=== PATIENT | male | born 1965 | race American Indian/Alaskan Native ===

== ENCOUNTER 2017-06-11 10:51 | Inpatient (IN) | payer MEDICARE, MEDICAID, OTHER ==
--- NOTE | 2017-06-11 11:21 | RAD ---
HISTORY: Detox/Psy COMPARISON: No prior. TECHNIQUE: Chest PA and lateral FINDINGS: LUNGS: No infiltrate. Probable calcified granuloma at right lung base. PLEURA: No significant pleural effusion identified. No pneumothorax apparent. CARDIOVASCULAR: Normal. OSSEOUS STRUCTURES: No significant abnormalities. VISUALIZED UPPER ABDOMEN: Normal. OTHER FINDINGS: None. IMPRESSION: No active disease.
[2017-06-11 11:43] LABS: BASO # 0.1 K/uL (0.0-0.2); BASO % 1.3 % (0.0-2.0); EOS # 0.1 K/uL (0.0-0.7); EOS % 2.5 % (0.0-4.0); HEMOGLOBIN 14.6 g/dL (12.0-18.0); LYMPH # 1.2 K/uL (1.0-4.3); LYMPH % 24.2 % (20.0-40.0); MEAN CELL VOLUME 94.9 fL (80.0-94.0); MEAN CORPUSCULAR HEMOGLOBIN 33.1 pg (27.0-31.0); MEAN CORPUSCULAR HGB CONC 34.8 g/dL (33.0-37.0); MONO # 0.3 K/uL (0.0-0.8); MONO % 5.3 % (0.0-10.0); NEUT # 3.3 K/uL (1.8-7.0); NEUT % 66.7 % (50.0-75.0); RBC 4.41 Mil/uL (4.40-5.90); RED CELL DISTRIBUTION WIDTH 14.7 % (11.5-14.5); WHITE BLOOD COUNT 4.9 K/uL (4.8-10.8)
[2017-06-11 11:56] LABS: SQUAMOUS EPITHIAL < 1 /hpf (0-5); URINE BILIRUBIN NEGATIVE (NEGATIVE); URINE BLOOD NEGATIVE (NEGATIVE); URINE CLARITY Clear (Clear); URINE COLOR Yellow (YELLOW); URINE GLUCOSE (UA) NORMAL (Normal); URINE LEUKOCYTE ESTERASE NEG Leu/uL (Negative); URINE PROTEIN NEGATIVE (NEGATIVE); URINE UROBILINOGEN NORMAL mg/dL (0.2-1.0)
[2017-06-11 11:57] LABS: ALB/GLOB RATIO 1.3 (1.0-2.1); ALBUMIN 4.2 g/dL (3.5-5.0); ALT/SGPT 26 U/L (21-72); AST/SGOT 51 U/L (17-59); BLOOD UREA NITROGEN 18 mg/dL (9-20); CALCIUM 8.8 mg/dl (8.6-10.4); GFR AFRICAN-AMERICAN > 60; GFR NON-AFRICAN AMERICAN > 60
--- NOTE | 2017-06-11 12:03 | C.PDOC ---
History Of Present Illness 51 year old male w/PMHx of poly-substance abuse presents to the ED requesting heroin detox. Patient states his last use was yesterday. AT present time, pt denies suicidal/homicidal ideation, pt denies any active physical complaints. Ambulate to Ed for evaluation, not in any apparent distress. Appears appropriate. Time Seen by Provider: 06/11/17 10:56 Chief Complaint (Nursing): Substance Abuse History Per: Patient History/Exam Limitations: no limitations Onset/Duration Of Symptoms: Hrs Current Symptoms Are (Timing): Still Present Suicide/Self Injury Attempted (Context): None Modifying Factor(s): Narcotics (heroin ) Associated Symptoms: denies: Suicidal Thoughts, Suicidal Plan Involuntary Hold By: None Recent travel outside of the [place]: No Additional History Per: Patient Past Medical History Reviewed: Historical Data, Nursing Documentation, Vital Signs Vital Signs: Last Vital Signs Temp 98.4 F 06/11/17 10:56 Pulse 50 L 06/11/17 13:53 Resp 16 06/11/17 13:53 BP 100/54 L 06/11/17 13:53 Pulse Ox 98 06/11/17 13:53 - Medical History PMH: Asthma, HIV, HTN Denies: Diabetes, Hepatitis, Seizures, Sexually Transmitted Disease Surgical History: No Surg Hx Family History: States: Unknown Family Hx - Social History Hx Alcohol Use: No Hx Substance Use: Yes - Immunization History Hx Tetanus Toxoid Vaccination: No Hx Influenza Vaccination: No Hx Pneumococcal Vaccination: No Review Of Systems Except As Marked, All Systems Reviewed And Found Negative. Constitutional: Negative for: Fever, Chills Eyes: Negative for: Vision Change ENT: Negative for: Throat Pain, Throat Swelling Cardiovascular: Negative for: Chest Pain, Palpitations, Orthopnea, Light Headedness Respiratory: Negative for: Cough, Shortness of Breath, Wheezing Gastrointestinal: Negative for: Nausea, Vomiting, Abdominal Pain, Diarrhea Genitourinary: Negative for: Dysuria, Incontinence Musculoskeletal: Negative for: Neck Pain, Back Pain Skin: Negative for: Rash, Bruising Neurological: Negative for: Weakness, Numbness, Altered Mental Status, Headache , Dizziness Psych: Positive for: Other (heroin detox ). Negative for: Suicidal ideation Physical Exam - Physical Exam Appears: Non-toxic, No Acute Distress Skin: Normal Color, Warm, Dry, No Rash, No Ecchymosis Head: Atraumatic, Normacephalic Eye(s): bilateral: PERRL Nose: No Flaring, No Discharge Oral Mucosa: Moist, No Drooling Throat: No Erythema Neck: Trachea Midline, Supple Chest: Symmetrical, No Deformity, No Tenderness Cardiovascular: Rhythm Regular, No Murmur Respiratory: No Rales, No Rhonchi, No Wheezing Gastrointestinal/Abdominal: Soft, No Tenderness, No Distention, No Guarding Back: No Vertebral Tenderness Extremity: Normal ROM, No Tenderness, No Pedal Edema, Capillary Refill (less than 2 seconds ) Neurological/Psych: Oriented x3, Normal Speech, Normal Cognition, Normal Motor, Normal Sensation, Normal Reflexes ED Course And Treatment - Laboratory Results Result Diagrams: 06/11/17 11:39 06/11/17 11:39 Lab Interpretation: Normal ECG: Interpreted By Me, Viewed By Me () ECG Interpretation: Normal Interpretation Of ECG: Sinus kacey@47/min, LVH, no acute ST-T changes. O2 Sat by Pulse Oximetry: 98 (on RA) Pulse Ox Interpretation: Normal - Radiology CXR: Interpreted by Me, Read By Radiologist CXR Interpretation: Yes: No Acute Disease - Other Rad CXR X-Ray: Interpreted by Me, Viewed By Me, Read By Radiologist Interpretation: HISTORY: Detox/Psy. COMPARISON: No prior. TECHNIQUE: Chest PA and lateral. FINDINGS: LUNGS: No infiltrate. Probable calcified granuloma at right lung base. PLEURA: No significant pleural effusion identified. No pneumothorax apparent. CARDIOVASCULAR: Normal. OSSEOUS STRUCTURES: No significant abnormalities. VISUALIZED UPPER ABDOMEN: Normal. OTHER FINDINGS: None. IMPRESSION: No active disease. Progress Note: Bloodwork, UA, CXR, and EKG ordered and reviewed. At 12:02, blood work, UA, EKG, CXR review and appears normal. Patient is medically cleared for PES evaluation now. After pt was evaluated by scrap metal processing worker Samara, case discussed with [id number] and admission arranged to detox floor. Disposition - Disposition Disposition: HOME/ ROUTINE Disposition Time: 13:20 Condition: STABLE - Clinical Impression Clinical Impression: Opioid dependence - PA / COMBINE DRIVER / Resident Statement MD/DO has reviewed & agrees with the documentation as recorded. - Scribe Statement The provider has reviewed the documentation as recorded by the Scribe (Rere Caban) All medical record entries made by the Scribe were at my direction and personally dictated by me. I have reviewed the chart and agree that the record accurately reflects my personal performance of the history, physical exam, medical decision making, and the department course for this patient. I have also personally directed, reviewed, and agree with the discharge instructions and disposition.
[2017-06-11 12:14] LABS: BARBITURATES, UR NEGATIVE (NEGATIVE); BENZODIAZEPINES, UR NEGATIVE (NEGATIVE); PHENCYCLIDINE, UR NEGATIVE (NEGATIVE)
[2017-06-11 12:37] LABS: OPIATES, UR POSITIVE (NEGATIVE)
[2017-06-11] MEDS ORDERED: Aluminum Hydroxide/Magnesium Hydroxide Susp (30 mL) PO PRN (13:48)
--- NOTE | 2017-06-11 13:52 | PCM.PSYCH ---
Initial Psychiatric Evaluation - Initial Psychiatric Evaluation Type of Admission: Voluntary Legal Status: Capacity Chief Complaint (in patient's own words): "Withdrawing" History of Present Illness and Precipitating Events: The pt is seen, chart reviewed, case discussed This is a 51 y/o AAM, with 10 children but lives with a new only. On disability due to back and knee injuries. He uses 40 bags of heroin intranasally, last use was yesterday. He started 10 years ago. No other drug or opioid use. Denies alcohol but smokes 1 ppd cigarettes. He was in detox and rehab 2x each and used suboxone. He says he couldn't stop on his own and has poor support system. No psych sxs except ofr wdw-related. Past psych hx: Denies Family psych hx: Denies Medical hx: HIV, DM? and asthma Current Medications: Active Medications Generic Name Dose Route Start Last Admin Trade Name Freq PRN Reason Stop Dose Admin Al Hydrox/Mg Hydrox/Simethicone 30 ml 06/11/17 13:48 Maalox 30 Ml PO TID PRN Indigestion / Heartburn Albuterol 1 puff 06/11/17 14:00 Ventolin Hfa 90 Mcg/Actuation (8 G) IH TID JOSUÉ Aspirin 81 mg 06/11/17 13:45 Aspirin Chewable PO DAILY JOSU[facility] Clonidine HCl 0.1 mg 06/11/17 13:48 Catapres PO Q8 PRN COWS Score More or Equal to 5 Hydroxyzine HCl 50 mg 06/11/17 13:49 Atarax PO Q6H PRN Anxiety Ibuprofen 600 mg 06/11/17 13:50 Motrin Tab PO Q6H PRN Pain, moderate (4-7) Loperamide HCl 2 mg 06/11/17 13:48 Imodium PO Q8 PRN Diarrhea Metoprolol Succinate 25 mg 06/12/17 10:00 Toprol Xl PO DAILY JOSUÉ Multivitamins 1 tab 06/12/17 10:00 Hexavitamin PO DAILY JOS[facility] Ondansetron HCl 4 mg 06/11/17 13:48 Zofran Tab PO Q8 PRN Nausea/Vomiting Quetiapine Fumarate 50 mg 06/11/17 22:00 Seroquel PO HS JOSU[facility] Rosuvastatin Calcium 10 mg 06/11/17 22:00 Crestor PO HS JOSUÉ Ticagrelor 90 mg 06/12/17 10:00 Brilinta PO DAILY J[facility] Trazodone HCl 50 mg 06/11/17 13:50 Desyrel PO HS PRN Insomnia Past Psychiatric History - Past Psychiatric History Previous Treatment History: None Pertinent Medical Hx (Current Medical&Sleep Prob, Allergies): Allergies Allergy/AdvReac Type Severity Reaction Status Date / Time tomato Allergy Verified 06/11/17 11:20 Albuterol HFA [Ventolin HFA 90 mcg/actuation (8 g)] 1 puff IH TID 06/11/17 Aspirin [Aspirin Chewable] 81 mg PO DAILY 06/11/17 Emtricitabine/Tenofov Alafenam [Descovy 200-25 mg Tablet] 1 each PO DAILY Metoprolol Succinate 25 mg PO DAILY 06/11/17 Multivitamin [Multi-Vitamin Daily] 1 each PO DAILY 06/11/17 QUEtiapine [SEROquel] 50 mg PO HS 06/11/17 Raltegravir Potassium [Isentress Hd] 600 mg PO DAILY 06/11/17 Ramipril [Altace] 2.5 mg PO DAILY 06/11/17 Rosuvastatin Calcium [Crestor] 10 mg PO DAILY 06/11/17 Ticagrelor [Brilinta] 90 mg PO DAILY 06/11/17 Review of Systems - Neurological Neurological: UNREMARKABLE - Psychiatric Psychiatric: Abnormal Sleep Pattern, Anxiety, Difficulty Concentrating, Irritability. absent: Homicidal Ideation, Suicidal Ideation Mental Status Examination - Personal Presentation Personal Presentation: Looks stated age - Affect Affect: Constricted - Motor Activity Motor Activity: Calm - Reliability in Providing Information Reliability in Providing Information: Good - Speech Speech: Organized - Mood Mood: Anxious - Formal Thought Process Formal Thought Process: No Impairment - Cognitive Functions Orientation: Person, Place, Situation, Time Sensorium: Alert Attention/Concentration: Attentive Estimate of Intelligence: Average Judgement: Intact, as evidence by: Insight regarding need for hospitalization Memory: Recent intact, as evidence by: Ability to recall events of the day, Remote intact, as evidenced by: Abilit to recall sig. life events - Risk Risk: Withdrawal, Diminished functioning - Strength & Assets Inventory Strength & Assets Inventory: Cooperative - Limitations Limitations: Other DSM 5 DX - DSM 5 DSM 5 Diagnosis: Opioid withdrawal Opioid use d/o - severe Tobacco use d/ - severe - Recommended/Plan of Treatment Treatment Recommendations and Plan of Treatment: Subutex detox per his request As needed medications Gabapentin for augmentation if needed All risks, benefits and alternatives of medications, including no medications, discussed and the patient understood and agreed. Attend groups and activities Supportive therapy and psychoeducation SC for abstinence CBT for relapse prevention Encourage MAT Refer to rehab or IOP Attend self-help groups as well SC for smoking cessation and patch if needed 34 min Projected ELOS: 4-5 days Prognosis: Good with detox and rehab/MAT - Smoking Cessation Smoking Cessation Initiated: Yes
--- NOTE | 2017-06-11 14:44 | PCM.BM ---
<Himanshu Hale - Last Filed: 06/11/17 14:42> Treatment Plan Problems - Problems identified on initial assessmt potential for opiate withdrawal Date Initiated: 06/11/17 Time Initiated: 14:30 Assessment reference: NA Status: Active Treatment assets and liabiliti Patient Assests: ADL independent, cognitively intact Patient Liabilities: poor support system, substance abuse, medical problems - Milieu Protocol Maintain good personal hygiene: daily Encourage regular showers, daily Remind patient to perform daily oral care, daily Assist patient to perform ADL's Conduct patient checks and document Observation sheet: Q15 minutes Maintain personal safety: every shift Educate patient to report safety concerns to staff, every shift Monitor environment for contraband/sharps Medication safety: Monitor for expected outcome, potential side effects: daily, Assess barriers to learning: every shift, Assess readiness for medication education: every shift <Alka Sanches - Last Filed: 06/12/17 16:29> - Diagnosis (1) Opioid dependence Status: Acute Interventions: 06/12/17 16:29 * Assess 7x/week regarding severity of withdrawal * Educate regarding risks, benefits, side effects and alternatives of medications * Use Motivational Interviewing for abstinence * Use CBT for relapse prevention * Medication management for withdrawal symptoms * Encourage medication assisted treatment *
[2017-06-11] MEDS ORDERED: Buprenorphine Hydrochloride 2 mg SL ONE ×2 (15:00→16:00)
[2017-06-11] MEDS ORDERED: Albuterol HFA 90 mcg/actuation (8 g) IH PRN (16:00)
[2017-06-11] MEDS: RALTEGRAVIR 600 MG PO SCH (16:21)
[2017-06-11] MEDS: DESCOVY PO SCH (16:21)
[2017-06-11] MEDS ORDERED: Oxymetazoline 0.05% Nasal Spray (30 ml) NS PRN (17:46)
[2017-06-11] MEDS: Oxymetazoline 0.05% Nasal Spray (30 ml) NS PRN (18:27)
[2017-06-12] MEDS ORDERED: Metoprolol Succinate 25 mg XL Tab PO SCH (10:00)
[2017-06-12] MEDS: DESCOVY PO SCH ×2 (11:06→11:16)
[2017-06-12] MEDS: RALTEGRAVIR 600 MG PO SCH ×2 (11:07→11:16)
[2017-06-12] MEDS: Multiple Vitamins Tab PO SCH (11:15)
[2017-06-12] MEDS ORDERED: Buprenorphine Hydrochloride 2 mg SL SCH ×2 (14:00→14:30)
--- NOTE | 2017-06-12 14:02 | PCM.PYCHPN ---
Psychiatric Progress Note - Psychiatric Progress Note Patient seen today, length of contact: 15 minutes Patient Chief Complaint: I'm not feeling better. Problems Identified/Issues Discussed: Patient seen, chart reviewed, case discussed with the staff. Issues related to illness and treatment were discussed with the patient and staff. Reported compliant with treatment with no adverse affects. Until this morning patient and vomiting, 3 times. Patient was given Zofran IM, one dose. Vomiting stopped. Patient started complaining about abdominal pain. His heart rate was low. EKG was done with preliminary report of bradycardia and first degree AV block. Patient denied any chest pain, shortness of breath, faintness or sweating. Medical consult was called. Patient has coronary artery disease and has a stent placement in coronary arteries. Patient refuses to take all of his medications except Subutex. Does not want to take any other medications even after education provided. At the time of evaluation, patient was awake alert oriented 3, had no delusions , no auditory or visual hallucinations, no suicidal ideations or homicidal ideations. Medical Problems: HIV Diabetes mellitus Coronary artery disease Asthma Hypertension Diagnostic Results: Reviewed DSM 5 Symptoms Update: Some improvement with treatment Medication Change: No Medical Record Reviewed: Yes Consults ordered or reviewed: Medical consult was called Mental Status Examination - Cognitive Function Orientation: Person, Place, Situation, Time Memory: Intact Attention: WNL Concentration: WNL Association: [facility] Fund of Knowledge: [facility] Decription of patient's judgement and insights: Fair - Mood Mood: Anxious - Affect Affect: Other (Appropriate) - Speech Speech: Appropriate - Formal Thought Process Formal Thought Process: No Impairment Psychotic Thoughts and Behaviors: None - Suicidal Ideation Suicidal Ideation: No - Homicidal Ideation Homicidal Ideation: No Goal/Treatment Plan - Goal/Treatment Plan Need for Continued Stay: Remain at risks for inpatient hospitalization, Discharge may exacerbated symptoms, Severe functional impairment Progress Toward Problem(s) and Goals/Treatment Plan: Patient education Supportive therapy CBT reported relapse prevention [place] for abstinence Hold metoprolol for now Continue rest of the treatment as before Estimated Date of D/C: 06/15/17 - Smoking Cessation Smoking Cessation Initiated: No
[2017-06-12 15:12] LABS: BASO % 0.6 % (0.0-2.0); EOS % 0.1 % (0.0-4.0); HEMOGLOBIN 16.3 g/dL (12.0-18.0); LYMPH # 0.7 K/uL (1.0-4.3); LYMPH % 10.3 % (20.0-40.0); MEAN CELL VOLUME 94.7 fL (80.0-94.0); MEAN CORPUSCULAR HEMOGLOBIN 32.6 pg (27.0-31.0); MEAN CORPUSCULAR HGB CONC 34.5 g/dL (33.0-37.0); MEAN PLATELET VOLUME 8.6 fL (7.2-11.7); MONO # 0.2 K/uL (0.0-0.8); MONO % 2.3 % (0.0-10.0); NEUT # 6.1 K/uL (1.8-7.0); NEUT % 86.7 % (50.0-75.0); RED CELL DISTRIBUTION WIDTH 14.6 % (11.5-14.5)
[2017-06-12 15:41] LABS: ALB/GLOB RATIO 1.2 (1.0-2.1); ALBUMIN 4.7 g/dL (3.5-5.0); ALT/SGPT 34 U/L (21-72); AST/SGOT 38 U/L (17-59); BLOOD UREA NITROGEN 16 mg/dL (9-20); CALCIUM 9.8 mg/dl (8.6-10.4); GFR AFRICAN-AMERICAN > 60; GFR NON-AFRICAN AMERICAN > 60
--- NOTE | 2017-06-12 16:20 | CP.PCM.CON ---
History of Present Illness - History of Present Illness History of Present Illness: Consulted for bardycardia Denies chest pain, dyspnea and palpitations Stable BP HX of stent a few months ago Stopped affending agents which can cause Bradycardia including Metoprolol and Brilinta Plavix started Lytes normal Trop x 1 normal TSH low Check ECHO Oxygen therapy DVT/GI propylaxis IV hydration Will follow Reason for consult: sinus kacey HPI: Patient is a 51 yo man with hx of CAD s/p PCI 3 months ago; HIV; HTN; heroin abuse; who was admitted for heroin detox. He was noted on tele to have asymptomatic sinus kacey to 35 bpm with underlying narrow QRS. ROS: as above, otherwise negative PMH: as above SH: + tobacco, + heroin, occasional ETOH FH: no premature CAD or SCA Physical Exam - Constitutional Appears: Well, In Acute Distress - Head Exam Head Exam: ATRAUMATIC - Eye Exam Eye Exam: Normal appearance - ENT Exam ENT Exam: Mucous Membranes Moist - Neck Exam Neck exam: Positive for: Normal Inspection - Respiratory Exam Respiratory Exam: Clear to Auscultation Bilateral - Cardiovascular Exam Cardiovascular Exam: REGULAR RHYTHM, +S1, +S2 - GI/Abdominal Exam GI & Abdominal Exam: Soft - Extremities Exam Extremities exam: Negative for: pedal edema - Neurological Exam Neurological exam: Oriented x3 - Psychiatric Exam Psychiatric exam: Normal Affect - Skin Skin Exam: Warm Past Patient History - Past Social History Smoking Status: Heavy Smoker > 10 Cigarettes Daily - CARDIAC Hx Hypertension: Yes - PULMONARY Hx Asthma: Yes - NEUROLOGICAL Hx Seizures: No - HEMATOLOGICAL/ONCOLOGICAL Hx Human Immunodeficiency Virus (HIV): Yes - MUSCULOSKELETAL/RHEUMATOLOGICAL Hx Falls: No - GENITOURINARY/GYNECOLOGICAL Hx Sexually Transmitted Disorders: No - PSYCHIATRIC Hx Substance Use: No - SURGICAL HISTORY Hx Coronary Stent: Yes - ANESTHESIA Hx Anesthesia: No Hx Anesthesia Reactions: No Hx Malignant Hyperthermia: No Has any member of the family had a problem w/ anesthesia?: No Meds Allergies/Adverse Reactions: Allergies Allergy/AdvReac Type Severity Reaction Status Date / Time tomato Allergy Verified 06/11/17 11:20 - Medications Medications: Current Medications Al Hydrox/Mg Hydrox/Simethicone (Maalox 30 Ml) 30 ml PO TID PRN PRN Reason: Indigestion / Heartburn Albuterol (Ventolin Hfa 90 Mcg/Actuation (8 G)) 1 puff IH RQ4 PRN PRN Reason: Shortness of Breath Aspirin (Aspirin Chewable) 81 mg PO DAILY [facility] Last Admin: 06/12/17 11:14 Dose: Not Given Buprenorphine HCl (Subutex) 6 mg SL DAILY [facility] PRN Reason: Taper Stop: 06/15/17 14:29 Last Admin: 06/12/17 14:24 Dose: 6 mg Clonidine HCl (Catapres) 0.1 mg PO Q8 PRN PRN Reason: COWS Score More or Equal to 5 Last Admin: 06/11/17 21:33 Dose: 0.1 mg Clopidogrel Bisulfate (Plavix) 300 mg PO STAT STA Stop: 06/12/17 16:16 Clopidogrel Bisulfate (Plavix) 75 mg PO DAILY [facility] Enalapril Maleate (Vasotec) 5 mg PO DAILY [facility] Last Admin: 06/12/17 11:16 Dose: Not Given Home Med (Patient's Own Medication) 1 tab PO DAILY [facility] Last Admin: 06/12/17 11:16 Dose: Not Given Home Med (Patient's Own Medication) 2 tab PO DAILY [facility] Last Admin: 06/12/17 11:16 Dose: Not Given Hydroxyzine HCl (Atarax) 50 mg PO Q6H PRN PRN Reason: Anxiety Last Admin: 06/11/17 21:32 Dose: 50 mg Ibuprofen (Motrin Tab) 600 mg PO Q6H PRN PRN Reason: Pain, moderate (4-7) Loperamide HCl (Imodium) 2 mg PO Q8 PRN PRN Reason: Diarrhea Metoprolol Succinate (Toprol Xl) 25 mg PO DAILY [facility] Last Admin: 06/12/17 10:43 Dose: Not Given Multivitamins (Hexavitamin) 1 tab PO DAILY [facility] Last Admin: 06/12/17 11:15 Dose: Not Given Ondansetron HCl (Zofran Tab) 4 mg PO Q8 PRN PRN Reason: Nausea/Vomiting Last Admin: 06/12/17 06:24 Dose: 4 mg Oxymetazoline HCl (Afrin 0.05%) 1 ml NS Q12H PRN PRN Reason: Nasal congestion Stop: 06/14/17 17:51 Last Admin: 06/11/17 18:27 Dose: 1 spr Quetiapine Fumarate (Seroquel) 50 mg PO HS [facility] Last Admin: 06/11/17 21:33 Dose: 50 mg Rosuvastatin Calcium (Crestor) 10 mg PO HS [facility] Last Admin: 06/11/17 21:33 Dose: 10 mg Trazodone HCl (Desyrel) 50 mg PO HS PRN PRN Reason: Insomnia Results - Vital Signs Recent Vital Signs: Last Vital Signs Temp 98.4 F 06/12/17 13:16 Pulse 37 L 06/12/17 13:16 Resp 18 06/12/17 13:16 BP 160/80 H 06/12/17 13:16 Pulse Ox 97 06/12/17 13:16 - Labs Result Diagrams: 06/12/17 14:58 06/13/17 08:40 Labs: Laboratory Results - last 24 hr 06/12/17 06/12/17 06/12/17 14:58 14:58 14:58 WBC 7.0 RBC 5.00 Hgb 16.3 Hct 47.4 MCV 94.7 H MCH 32.6 H MCHC 34.5 RDW 14.6 H Plt Count 233 MPV 8.6 Neut % (Auto) 86.7 H Lymph % (Auto) 10.3 L [place] % (Auto) 2.3 Eos % (Auto) 0.1 Baso % (Auto) 0.6 Neut # (Auto) 6.1 Lymph # (Auto) 0.7 L [place] # (Auto) 0.2 Eos # (Auto) 0.0 Baso # (Auto) 0.0 Sodium 144 Potassium 4.3 Chloride 104 Carbon Dioxide 26 Anion Gap 19 BUN 16 Creatinine 1.0 Est GFR ( Amer) > 60 Est GFR (Non-Af Amer) > 60 Random Glucose 130 H Calcium 9.8 Phosphorus 3.5 Magnesium 1.9 Total Bilirubin 0.6 AST 38 ALT 34 Alkaline Phosphatase 94 Troponin I < 0.0120 Total Protein 8.6 H Albumin 4.7 Globulin 3.9 Albumin/Globulin Ratio 1.2 Free T4 TSH 3rd Generation 0.24 L 06/12/17 14:58 WBC RBC Hgb Hct MCV MCH MCHC RDW Plt Count MPV Neut % (Auto) Lymph % (Auto) [place] % (Auto) Eos % (Auto) Baso % (Auto) Neut # (Auto) Lymph # (Auto) [place] # (Auto) Eos # (Auto) Baso # (Auto) Sodium Potassium Chloride Carbon Dioxide Anion Gap BUN Creatinine Est GFR ( Amer) Est GFR (Non-Af Amer) Random Glucose Calcium Phosphorus Magnesium Total Bilirubin AST ALT Alkaline Phosphatase Troponin I Total Protein Albumin Globulin Albumin/Globulin Ratio Free T4 0.90 TSH 3rd Generation Assessment & Plan - Assessment and Plan (Free Text) Assessment: Consulted for bardycardia Denies chest pain, dyspnea and palpitations Stable BP HX of stent a few months ago Stopped affending agents which can cause Bradycardia including Metoprolol and Brilinta Plavix started Lytes normal Trop x 1 normal TSH low Check ECHO Oxygen therapy DVT/GI propylaxis IV hydration This is a cardiology patient of [facility] I will sig off They will take over cardiac care Thank you
[2017-06-12] MEDS: Sodium Chloride 0.9% 1,000 ML IV SCH (16:57)
--- NOTE | 2017-06-12 21:01 | CARD ---
APPROVED REPORT EKG Measurement Heart [id number] <Conclusion> Sinus bradycardia Minimal voltage criteria for LVH, may be normal variant Borderline ECG
--- NOTE | 2017-06-12 23:57 | CP.PCM.HP ---
History of Present Illness - History of Present Illness History of Present Illness: HPI: Patient is a 51 yo man with hx of CAD s/p PCI 3 months ago; HIV; HTN; heroin abuse; who was admitted for heroin detox. He was noted on tele to have asymptomatic sinus kacey to 35 bpm with underlying narrow QRS. He was on metoprolol 25mg BID at the time, which was held. In addition, his Brilinta was changed to Plavix to minimize chance of bradycardia. His HR has now improved to 60 bpm. Pt denies any SOB, dizziness, syncope, chest pain, orthopnea, PND or leg edema. EP is now consulted by Dr. Novak. ROS: as above, otherwise negative PMH: as above SH: + tobacco, + heroin, occasional ETOH FH: no premature CAD or SCA Denies chest pain, dyspnea and palpitations Stable BP HX of stent a few months ago Stopped affending agents which can cause Bradycardia including Metoprolol and Brilinta Plavix started Lytes normal Trop x 1 normal TSH low Check ECHO Oxygen therapy DVT/GI propylaxis IV hydration Will follow Past Patient History - Past Social History Smoking Status: Heavy Smoker > 10 Cigarettes Daily - CARDIAC Hx Hypertension: Yes - PULMONARY Hx Asthma: Yes - NEUROLOGICAL Hx Seizures: No - HEMATOLOGICAL/ONCOLOGICAL Hx Human Immunodeficiency Virus (HIV): Yes - MUSCULOSKELETAL/RHEUMATOLOGICAL Hx Falls: No - GENITOURINARY/GYNECOLOGICAL Hx Sexually Transmitted Disorders: No - PSYCHIATRIC Hx Substance Use: No - SURGICAL HISTORY Hx Coronary Stent: Yes - ANESTHESIA Hx Anesthesia: No Hx Anesthesia Reactions: No Hx Malignant Hyperthermia: No Has any member of the family had a problem w/ anesthesia?: No Meds Allergies/Adverse Reactions: Allergies Allergy/AdvReac Type Severity Reaction Status Date / Time tomato Allergy Verified 06/11/17 11:20 Results - Vital Signs Recent Vital Signs: Last Vital Signs Temp 98.1 F 06/12/17 16:05 Pulse 44 L 06/12/17 16:05 Resp 18 06/12/17 16:05 BP 165/94 H 06/12/17 16:05 Pulse Ox 96 06/12/17 16:05 - Labs Result Diagrams: 06/12/17 14:58 06/13/17 08:40 Labs: Laboratory Results - last 24 hr 06/12/17 06/12/17 06/12/17 14:58 14:58 14:58 WBC 7.0 RBC 5.00 Hgb 16.3 Hct 47.4 MCV 94.7 H MCH 32.6 H MCHC 34.5 RDW 14.6 H Plt Count 233 MPV 8.6 Neut % (Auto) 86.7 H Lymph % (Auto) 10.3 L [place] % (Auto) 2.3 Eos % (Auto) 0.1 Baso % (Auto) 0.6 Neut # (Auto) 6.1 Lymph # (Auto) 0.7 L [place] # (Auto) 0.2 Eos # (Auto) 0.0 Baso # (Auto) 0.0 Sodium 144 Potassium 4.3 Chloride 104 Carbon Dioxide 26 Anion Gap 19 BUN 16 Creatinine 1.0 Est GFR ( Amer) > 60 Est GFR (Non-Af Amer) > 60 Random Glucose 130 H Calcium 9.8 Phosphorus 3.5 Magnesium 1.9 Total Bilirubin 0.6 AST 38 ALT 34 Alkaline Phosphatase 94 Troponin I < 0.0120 Total Protein 8.6 H Albumin 4.7 Globulin 3.9 Albumin/Globulin Ratio 1.2 Free T4 TSH 3rd Generation 0.24 L 06/12/17 14:58 WBC RBC Hgb Hct MCV MCH MCHC RDW Plt Count MPV Neut % (Auto) Lymph % (Auto) [place] % (Auto) Eos % (Auto) Baso % (Auto) Neut # (Auto) Lymph # (Auto) [place] # (Auto) Eos # (Auto) Baso # (Auto) Sodium Potassium Chloride Carbon Dioxide Anion Gap BUN Creatinine Est GFR ( Amer) Est GFR (Non-Af Amer) Random Glucose Calcium Phosphorus Magnesium Total Bilirubin AST ALT Alkaline Phosphatase Troponin I Total Protein Albumin Globulin Albumin/Globulin Ratio Free T4 0.90 TSH 3rd Generation
[2017-06-13 09:12] LABS: BLOOD UREA NITROGEN 16 mg/dL (9-20); CALCIUM 9.3 mg/dl (8.6-10.4); GFR AFRICAN-AMERICAN > 60; GFR NON-AFRICAN AMERICAN > 60
[2017-06-13] MEDS: Multiple Vitamins Tab PO SCH (10:59)
[2017-06-13] MEDS: DESCOVY PO SCH (10:59)
[2017-06-13] MEDS: RALTEGRAVIR 600 MG PO SCH (10:59)
[2017-06-13] MEDS: Oxymetazoline 0.05% Nasal Spray (30 ml) NS PRN (11:16)
[2017-06-13] MEDS ORDERED: Buprenorphine Hydrochloride 2 mg SL SCH (14:00)
[2017-06-13] MEDS ORDERED: Buprenorphine Hydrochloride 2 mg SL ONE (14:15)
--- NOTE | 2017-06-13 15:12 | CP.PCM.CON ---
History of Present Illness - History of Present Illness History of Present Illness: EP CONSULT NOTE Reason for consult: sinus kacey HPI: Patient is a 51 yo man with hx of CAD s/p PCI 3 months ago; HIV; HTN; heroin abuse; who was admitted for heroin detox. He was noted on tele to have asymptomatic sinus kacey to 35 bpm with underlying narrow QRS. He was on metoprolol 25mg BID at the time, which was held. In addition, his Brilinta was changed to Plavix to minimize chance of bradycardia. His HR has now improved to 60 bpm. Pt denies any SOB, dizziness, syncope, chest pain, orthopnea, PND or leg edema. EP is now consulted by Dr. Novak. ROS: as above, otherwise negative PMH: as above SH: + tobacco, + heroin, occasional ETOH FH: no premature CAD or SCA Past Patient History - Past Social History Smoking Status: Heavy Smoker > 10 Cigarettes Daily - CARDIAC Hx Hypertension: Yes - PULMONARY Hx Asthma: Yes - NEUROLOGICAL Hx Seizures: No - HEMATOLOGICAL/ONCOLOGICAL Hx Human Immunodeficiency Virus (HIV): Yes - MUSCULOSKELETAL/RHEUMATOLOGICAL Hx Falls: No - GENITOURINARY/GYNECOLOGICAL Hx Sexually Transmitted Disorders: No - PSYCHIATRIC Hx Substance Use: No - SURGICAL HISTORY Hx Coronary Stent: Yes - ANESTHESIA Hx Anesthesia: No Hx Anesthesia Reactions: No Hx Malignant Hyperthermia: No Has any member of the family had a problem w/ anesthesia?: No Meds Allergies/Adverse Reactions: Allergies Allergy/AdvReac Type Severity Reaction Status Date / Time tomato Allergy Verified 06/11/17 11:20 - Medications Medications: Current Medications Al Hydrox/Mg Hydrox/Simethicone (Maalox 30 Ml) 30 ml PO TID PRN PRN Reason: Indigestion / Heartburn Albuterol (Ventolin Hfa 90 Mcg/Actuation (8 G)) 1 puff IH RQ4 PRN PRN Reason: Shortness of Breath Aspirin (Aspirin Chewable) 81 mg PO DAILY [facility] Last Admin: 06/13/17 10:59 Dose: 81 mg Buprenorphine HCl (Subutex) 2 mg SL ONCE ONE Stop: 06/14/17 14:16 Clonidine HCl (Catapres) 0.1 mg PO Q8 PRN PRN Reason: COWS Score More or Equal to 5 Last Admin: 06/11/17 21:33 Dose: 0.1 mg Clopidogrel Bisulfate (Plavix) 75 mg PO DAILY [facility] Last Admin: 06/13/17 10:59 Dose: 75 mg Enalapril Maleate (Vasotec) 5 mg PO DAILY [facility] Last Admin: 06/13/17 14:06 Dose: 5 mg Home Med (Patient's Own Medication) 1 tab PO DAILY [facility] Last Admin: 06/13/17 10:59 Dose: 1 tab Home Med (Patient's Own Medication) 2 tab PO DAILY [facility] Last Admin: 06/13/17 10:59 Dose: 2 tab Hydroxyzine HCl (Atarax) 50 mg PO Q6H PRN PRN Reason: Anxiety Last Admin: 06/11/17 21:32 Dose: 50 mg Sodium Chloride (Sodium Chloride 0.9%) 1,000 mls @ 70 mls/hr IV .[id number] [facility] Last Admin: 06/12/17 16:57 Dose: 70 mls/hr Ibuprofen (Motrin Tab) 600 mg PO Q6H PRN PRN Reason: Pain, moderate (4-7) Loperamide HCl (Imodium) 2 mg PO Q8 PRN PRN Reason: Diarrhea Metoprolol Succinate (Toprol Xl) 25 mg PO DAILY [facility] Last Admin: 06/12/17 10:43 Dose: Not Given Multivitamins (Hexavitamin) 1 tab PO DAILY [facility] Last Admin: 06/13/17 10:59 Dose: 1 tab Ondansetron HCl (Zofran Inj) 4 mg IVP Q8H PRN PRN Reason: Nausea/Vomiting Last Admin: 06/12/17 19:24 Dose: 4 mg Oxymetazoline HCl (Afrin 0.05%) 1 ml NS Q12H PRN PRN Reason: Nasal congestion Stop: 06/14/17 17:51 Last Admin: 06/13/17 11:16 Dose: 1 spr Pneumococcal Polyvalent Vaccine (Pneumovax 23 Vaccine) 0.5 ml IM .ONCE ONE Stop: 06/16/17 10:01 Quetiapine Fumarate (Seroquel) 50 mg PO HS [facility] Last Admin: 06/12/17 21:13 Dose: 50 mg Rosuvastatin Calcium (Crestor) 10 mg PO HS [facility] Last Admin: 06/12/17 21:13 Dose: 10 mg Trazodone HCl (Desyrel) 50 mg PO HS PRN PRN Reason: Insomnia Physical Exam - Constitutional Appears: Well, In Acute Distress - Head Exam Head Exam: ATRAUMATIC - Eye Exam Eye Exam: Normal appearance - ENT Exam ENT Exam: Mucous Membranes Moist - Neck Exam Neck exam: Positive for: Normal Inspection - Respiratory Exam Respiratory Exam: Clear to Auscultation Bilateral - Cardiovascular Exam Cardiovascular Exam: REGULAR RHYTHM, +S1, +S2 - GI/Abdominal Exam GI & Abdominal Exam: Soft - Extremities Exam Extremities exam: Negative for: pedal edema - Neurological Exam Neurological exam: Oriented x3 - Psychiatric Exam Psychiatric exam: Normal Affect - Skin Skin Exam: Warm Results - Vital Signs Recent Vital Signs: Last Vital Signs Temp 98.5 F 06/13/17 09:11 Pulse 49 L 06/13/17 09:11 Resp 20 06/13/17 09:11 BP 159/83 H 06/13/17 14:06 Pulse Ox 95 06/13/17 09:11 - Labs Result Diagrams: 06/12/17 14:58 06/13/17 08:40 Labs: Laboratory Results - last 24 hr 06/12/17 06/12/17 06/12/17 14:58 14:58 14:58 WBC 7.0 RBC 5.00 Hgb 16.3 Hct 47.4 MCV 94.7 H MCH 32.6 H MCHC 34.5 RDW 14.6 H Plt Count 233 MPV 8.6 Neut % (Auto) 86.7 H Lymph % (Auto) 10.3 L [place] % (Auto) 2.3 Eos % (Auto) 0.1 Baso % (Auto) 0.6 Neut # (Auto) 6.1 Lymph # (Auto) 0.7 L [place] # (Auto) 0.2 Eos # (Auto) 0.0 Baso # (Auto) 0.0 Sodium 144 Potassium 4.3 Chloride 104 Carbon Dioxide 26 Anion Gap 19 BUN 16 Creatinine 1.0 Est GFR ( Amer) > 60 Est GFR (Non-Af Amer) > 60 Random Glucose 130 H Calcium 9.8 Phosphorus 3.5 Magnesium 1.9 Total Bilirubin 0.6 AST 38 ALT 34 Alkaline Phosphatase 94 Troponin I < 0.0120 Total Protein 8.6 H Albumin 4.7 Globulin 3.9 Albumin/Globulin Ratio 1.2 Free T4 TSH 3rd Generation 0.24 L 06/12/17 06/13/17 14:58 08:40 WBC RBC Hgb Hct MCV MCH MCHC RDW Plt Count MPV Neut % (Auto) Lymph % (Auto) [place] % (Auto) Eos % (Auto) Baso % (Auto) Neut # (Auto) Lymph # (Auto) [place] # (Auto) Eos # (Auto) Baso # (Auto) Sodium 141 Potassium 4.1 Chloride 109 H Carbon Dioxide 20 L Anion Gap 17 BUN 16 Creatinine 1.1 Est GFR ( Amer) > 60 Est GFR (Non-Af Amer) > 60 Random Glucose 101 Calcium 9.3 Phosphorus Magnesium Total Bilirubin AST ALT Alkaline Phosphatase Troponin I 0.0150 Total Protein Albumin Globulin Albumin/Globulin Ratio Free T4 0.90 TSH 3rd Generation - Impressions Impression: sinus kacey, narrow QRS, otherwise normal tracing Assessment & Plan - Assessment and Plan (Free Text) Assessment: 1. Asymptomatic sinus bradycardia -- Underlying narrow QRS 2. CAD s/p PCI 3 months ago 3. Heroin abuse -- undergoing detox 4. HIV Plan: 1. No indication for PPM at this time since patient has asymptomatic sinus bradycardia without any heart block 2. Walk in hallway and monitor for increase in HR with exertion. If HR increases with exertion, then this would be reassuring and would be safe to start carvedilol 3.125mg daily (for his CAD) 3. However, if chronotropic incompetence is noted with hallway walk, then a PPM may be needed 4. Avoid clonidine as this may contribute to bradycardia
[2017-06-13] MEDS: Sodium Chloride 0.9% 1,000 ML IV SCH ×2 (18:02→22:25)
--- NOTE | 2017-06-13 23:45 | CP.PCM.PN ---
Subjective - Date & Time of Evaluation Date of Evaluation: 06/13/17 Time of Evaluation: 16:00 - Subjective Subjective: Pt seen & evalauted, HR has now improved to 60 bpm. Pt denies any SOB, dizziness, syncope, chest pain, orthopnea, PND or leg edema. EP is now consulted by Dr. Novak. Objective - Vital Signs/Intake and Output Vital Signs (last 24 hours): Temp Pulse Resp BP Pulse Ox 99.3 F 46 L 18 155/84 H 94 L 06/13/17 19:06 06/13/17 19:06 06/13/17 19:06 06/13/17 19:06 06/13/17 19:06 - Medications Medications: Current Medications Al Hydrox/Mg Hydrox/Simethicone (Maalox 30 Ml) 30 ml PO TID PRN PRN Reason: Indigestion / Heartburn Albuterol (Ventolin Hfa 90 Mcg/Actuation (8 G)) 1 puff IH RQ4 PRN PRN Reason: Shortness of Breath Aspirin (Aspirin Chewable) 81 mg PO DAILY [facility] Last Admin: 06/13/17 10:59 Dose: 81 mg Buprenorphine HCl (Subutex) 2 mg SL ONCE ONE Stop: 06/14/17 14:16 Carvedilol (Coreg) 3.125 mg PO DAILY [facility] Clopidogrel Bisulfate (Plavix) 75 mg PO DAILY [facility] Last Admin: 06/13/17 10:59 Dose: 75 mg Enalapril Maleate (Vasotec) 5 mg PO DAILY [facility] Last Admin: 06/13/17 14:06 Dose: 5 mg Enoxaparin Sodium (Lovenox) 40 mg SC DAILY [facility] Home Med (Patient's Own Medication) 1 tab PO DAILY [facility] Last Admin: 06/13/17 10:59 Dose: 1 tab Home Med (Patient's Own Medication) 2 tab PO DAILY [facility] Last Admin: 06/13/17 10:59 Dose: 2 tab Hydroxyzine HCl (Atarax) 50 mg PO Q6H PRN PRN Reason: Anxiety Last Admin: 06/11/17 21:32 Dose: 50 mg Sodium Chloride (Sodium Chloride 0.9%) 1,000 mls @ 70 mls/hr IV .[id number] [facility] Last Admin: 06/13/17 22:25 Dose: Not Given Ibuprofen (Motrin Tab) 600 mg PO Q6H PRN PRN Reason: Pain, moderate (4-7) Loperamide HCl (Imodium) 2 mg PO Q8 PRN PRN Reason: Diarrhea Metoprolol Succinate (Toprol Xl) 25 mg PO DAILY [facility] Last Admin: 06/12/17 10:43 Dose: Not Given Multivitamins (Hexavitamin) 1 tab PO DAILY [facility] Last Admin: 06/13/17 10:59 Dose: 1 tab Ondansetron HCl (Zofran Inj) 4 mg IVP Q8H PRN PRN Reason: Nausea/Vomiting Last Admin: 06/12/17 19:24 Dose: 4 mg Oxymetazoline HCl (Afrin 0.05%) 1 ml NS Q12H PRN PRN Reason: Nasal congestion Stop: 06/14/17 17:51 Last Admin: 06/13/17 11:16 Dose: 1 spr Pneumococcal Polyvalent Vaccine (Pneumovax 23 Vaccine) 0.5 ml IM .ONCE ONE Stop: 06/16/17 10:01 Quetiapine Fumarate (Seroquel) 50 mg PO HS [facility] Last Admin: 06/13/17 22:22 Dose: 50 mg Rosuvastatin Calcium (Crestor) 10 mg PO HS [facility] Last Admin: 06/13/17 22:22 Dose: 10 mg Trazodone HCl (Desyrel) 50 mg PO HS PRN PRN Reason: Insomnia - Labs Labs: 06/12/17 14:58 06/13/17 08:40
[2017-06-14 00:50] VITALS: RESP 20
[2017-06-14] MEDS: Sodium Chloride 0.9% 1,000 ML IV SCH ×2 (04:05→12:49)
[2017-06-14 08:15] VITALS: TEMP 98.3; O2SAT 96
[2017-06-14] MEDS ORDERED: Buprenorphine Hydrochloride 2 mg SL ONE ×2 (10:00→14:15)
[2017-06-14] MEDS ORDERED: Enoxaparin 40 mg Syringe SC SCH (10:00)
--- NOTE | 2017-06-14 10:04 | CP.PCM.PN ---
Subjective - Date & Time of Evaluation Date of Evaluation: 06/14/17 Time of Evaluation: 10:02 - Subjective Subjective: Pt did not sleep well, tired, otherwise NAD Objective - Vital Signs/Intake and Output Vital Signs (last 24 hours): Temp Pulse Resp BP Pulse Ox 98.3 F 48 L 20 154/82 H 96 06/14/17 08:04 06/14/17 08:04 06/14/17 08:04 06/14/17 08:04 06/14/17 08:04 Intake and Output: 06/14/17 06/14/17 06:59 18:59 Intake Total 560 Balance 560 - Medications Medications: Current Medications Al Hydrox/Mg Hydrox/Simethicone (Maalox 30 Ml) 30 ml PO TID PRN PRN Reason: Indigestion / Heartburn Albuterol (Ventolin Hfa 90 Mcg/Actuation (8 G)) 1 puff IH RQ4 PRN PRN Reason: Shortness of Breath Aspirin (Aspirin Chewable) 81 mg PO DAILY [facility] Last Admin: 06/13/17 10:59 Dose: 81 mg Carvedilol (Coreg) 3.125 mg PO DAILY [facility] Clopidogrel Bisulfate (Plavix) 75 mg PO DAILY [facility] Last Admin: 06/13/17 10:59 Dose: 75 mg Enalapril Maleate (Vasotec) 5 mg PO DAILY [facility] Last Admin: 06/13/17 14:06 Dose: 5 mg Enoxaparin Sodium (Lovenox) 40 mg SC DAILY [facility] Home Med (Patient's Own Medication) 1 tab PO DAILY [facility] Last Admin: 06/13/17 10:59 Dose: 1 tab Home Med (Patient's Own Medication) 2 tab PO DAILY [facility] Last Admin: 06/13/17 10:59 Dose: 2 tab Hydroxyzine HCl (Atarax) 50 mg PO Q6H PRN PRN Reason: Anxiety Last Admin: 06/11/17 21:32 Dose: 50 mg Sodium Chloride (Sodium Chloride 0.9%) 1,000 mls @ 70 mls/hr IV .[id number] [facility] Last Admin: 06/14/17 04:05 Dose: 70 mls/hr Ibuprofen (Motrin Tab) 600 mg PO Q6H PRN PRN Reason: Pain, moderate (4-7) Loperamide HCl (Imodium) 2 mg PO Q8 PRN PRN Reason: Diarrhea Multivitamins (Hexavitamin) 1 tab PO DAILY [facility] Last Admin: 06/13/17 10:59 Dose: 1 tab Ondansetron HCl (Zofran Inj) 4 mg IVP Q8H PRN PRN Reason: Nausea/Vomiting Last Admin: 06/12/17 19:24 Dose: 4 mg Oxymetazoline HCl (Afrin 0.05%) 1 ml NS Q12H PRN PRN Reason: Nasal congestion Stop: 06/14/17 17:51 Last Admin: 06/13/17 11:16 Dose: 1 spr Pneumococcal Polyvalent Vaccine (Pneumovax 23 Vaccine) 0.5 ml IM .ONCE ONE Stop: 06/16/17 10:01 Quetiapine Fumarate (Seroquel) 50 mg PO HS [facility] Last Admin: 06/13/17 22:22 Dose: 50 mg Rosuvastatin Calcium (Crestor) 10 mg PO HS [facility] Last Admin: 06/13/17 22:22 Dose: 10 mg Trazodone HCl (Desyrel) 50 mg PO HS PRN PRN Reason: Insomnia - Labs Labs: 06/12/17 14:58 06/13/17 08:40 - Constitutional Appears: Well - Head Exam Head Exam: NORMAL INSPECTION - Eye Exam Eye Exam: Normal appearance - Neck Exam Neck Exam: Full ROM - Respiratory Exam Respiratory Exam: Clear to Ausculation Bilateral, NORMAL BREATHING PATTERN - Cardiovascular Exam Cardiovascular Exam: REGULAR RHYTHM - GI/Abdominal Exam GI & Abdominal Exam: Normal Bowel Sounds - Extremities Exam Extremities Exam: Full ROM - Back Exam Back Exam: NORMAL INSPECTION - Neurological Exam Neurological Exam: Alert, Awake, Oriented x3 - Psychiatric Exam Psychiatric exam: Normal Affect - Skin Skin Exam: Normal Color Assessment and Plan - Assessment and Plan (Free Text) Assessment: 1. Heart rate currently 42 bpm, asymptomatic. 2. Will review echo after it is done.3 Asymptomatic bradycardia, cardiomyopathy : no signs of pulmonary congestion.
[2017-06-14 10:24] VITALS: BP 142/78
[2017-06-14] MEDS: DESCOVY PO SCH (10:25)
[2017-06-14] MEDS: Multiple Vitamins Tab PO SCH (10:25)
[2017-06-14] MEDS: RALTEGRAVIR 600 MG PO SCH (10:25)
--- NOTE | 2017-06-14 12:10 | PCM.PYCHPN ---
Psychiatric Progress Note - Psychiatric Progress Note Patient seen today, length of contact: 15 minutes Patient Chief Complaint: "I'm fine" Problems Identified/Issues Discussed: The pt is seen,chart reviewed He is completing detox today Doing "good" and wants to got o IOp at [facility] No psych sxs Support, psychoed given , AL used Psych will sign off Medication Change: Yes (SBX ending) Medical Record Reviewed: Yes Mental Status Examination - Cognitive Function Orientation: Person, Place, Situation, Time Memory: Intact Attention: WNL Concentration: WNL Association: WNL Fund of Knowledge: WNL - Mood Mood: Anxious - Affect Affect: Other (Appropriate) - Speech Speech: Appropriate - Formal Thought Process Formal Thought Process: No Impairment - Suicidal Ideation Suicidal Ideation: No - Homicidal Ideation Homicidal Ideation: No Goal/Treatment Plan - Goal/Treatment Plan Progress Toward Problem(s) and Goals/Treatment Plan: Subutex detox ended Pt is cleared for d/c psychiatrically He will go to IOP at [facility] in Estimated Date of D/C: 06/15/17
[2017-06-14 12:13] VITALS: PULSE 50
[2017-06-14] MEDS ORDERED: MethylPREDNISolone 40 mg Vial IVP STA (12:58)
[2017-06-14] MEDS ORDERED: Albuterol-Ipratrop 3 mg / 0.5 (3 ml) UD INH SCH (13:00)
--- NOTE | 2017-06-14 15:19 | CP.PCM.PN ---
Subjective - Date & Time of Evaluation Date of Evaluation: 06/14/17 Time of Evaluation: 13:00 - Subjective Subjective: Patient seen today , denies any dizziness, sob, chest pain, c/o cough non productive Objective - Vital Signs/Intake and Output Vital Signs (last 24 hours): Temp Pulse Resp BP Pulse Ox 98.3 F 50 L 20 142/78 96 06/14/17 08:04 06/14/17 12:00 06/14/17 08:04 06/14/17 10:25 06/14/17 08:04 Intake and Output: 06/14/17 06/14/17 06:59 18:59 Intake Total 560 840 Balance 560 840 - Medications Medications: Current Medications Al Hydrox/Mg Hydrox/Simethicone (Maalox 30 Ml) 30 ml PO TID PRN PRN Reason: Indigestion / Heartburn Albuterol (Ventolin Hfa 90 Mcg/Actuation (8 G)) 1 puff IH RQ4 PRN PRN Reason: Shortness of Breath Albuterol/Ipratropium (Duoneb 3 Mg/0.5 Mg (3 Ml) Ud) 3 ml INH RQ6 JOSUÉ Aspirin (Aspirin Chewable) 81 mg PO DAILY [facility] Last Admin: 06/14/17 10:25 Dose: 81 mg Carvedilol (Coreg) 3.125 mg PO DAILY [facility] Last Admin: 06/14/17 10:25 Dose: 3.125 mg Clopidogrel Bisulfate (Plavix) 75 mg PO DAILY [facility] Last Admin: 06/14/17 10:25 Dose: 75 mg Enalapril Maleate (Vasotec) 5 mg PO DAILY [facility] Last Admin: 06/14/17 10:25 Dose: 5 mg Enoxaparin Sodium (Lovenox) 40 mg SC DAILY [facility] Last Admin: 06/14/17 10:25 Dose: 40 mg Home Med (Patient's Own Medication) 1 tab PO DAILY [facility] Last Admin: 06/14/17 10:25 Dose: 1 tab Home Med (Patient's Own Medication) 2 tab PO DAILY [facility] Last Admin: 06/14/17 10:25 Dose: 2 tab Hydroxyzine HCl (Atarax) 50 mg PO Q6H PRN PRN Reason: Anxiety Last Admin: 06/11/17 21:32 Dose: 50 mg Sodium Chloride (Sodium Chloride 0.9%) 1,000 mls @ 70 mls/hr IV .[id number] [facility] Last Admin: 06/14/17 12:49 Dose: Not Given Ibuprofen (Motrin Tab) 600 mg PO Q6H PRN PRN Reason: Pain, moderate (4-7) Loperamide HCl (Imodium) 2 mg PO Q8 PRN PRN Reason: Diarrhea Multivitamins (Hexavitamin) 1 tab PO DAILY [facility] Last Admin: 06/14/17 10:25 Dose: 1 tab Ondansetron HCl (Zofran Inj) 4 mg IVP Q8H PRN PRN Reason: Nausea/Vomiting Last Admin: 06/12/17 19:24 Dose: 4 mg Oxymetazoline HCl (Afrin 0.05%) 1 ml NS Q12H PRN PRN Reason: Nasal congestion Stop: 06/14/17 17:51 Last Admin: 06/13/17 11:16 Dose: 1 spr Pneumococcal Polyvalent Vaccine (Pneumovax 23 Vaccine) 0.5 ml IM .ONCE ONE Stop: 06/16/17 10:01 Quetiapine Fumarate (Seroquel) 50 mg PO HS [facility] Last Admin: 06/13/17 22:22 Dose: 50 mg Rosuvastatin Calcium (Crestor) 10 mg PO HS [facility] Last Admin: 06/13/17 22:22 Dose: 10 mg Trazodone HCl (Desyrel) 50 mg PO HS PRN PRN Reason: Insomnia - Labs Labs: 06/12/17 14:58 06/13/17 08:40 Assessment and Plan - Assessment and Plan (Free Text) Assessment: A/P 51 yo male with hx of CAD s/p PCI 3 months ago, HIV; HTN; heroin abuse; who was admitted for heroin detox on 5s transferred to [facility] for bradycardia HR still in high 40's on resting improved with activity above 50,s Dr. Fritz (EP) consulted fro bradycardia and recommended to start low dose coreg , no intervention at this time and f/u out pt D/W Dr. Sanches, cleared fro psychiatry point of view for discharge after todays dose of suboxone and f/u IOP out patient at [facility] D/W Dr. Rodriguez, stable for discharge home today adn f/u with Dr. Rodriguez, aand Dr. Little office Discharge plan discussed with pateint including f/u visit, who understand and agrees with plan SW to give information to f/u out pt IOP
--- NOTE | 2017-06-14 21:29 | CP.PCM.DIS ---
Provider - Provider Date of Admission: 06/11/17 13:21 Attending physician: Kiet Rodriguez MD Time Spent in preparation of Discharge (in minutes): 45 Hospital Course - Lab Results Lab Results: Most Recent Lab Values WBC 7.0 K/uL (4.8-10.8) 06/12/17 14:58 RBC 5.00 Mil/uL (4.40-5.90) 06/12/17 14:58 Hgb 16.3 g/dL (12.0-18.0) 06/12/17 14:58 Hct 47.4 % (35.0-51.0) 06/12/17 14:58 MCV 94.7 fL (80.0-94.0) H 06/12/17 14:58 MCH 32.6 pg (27.0-31.0) H 06/12/17 14:58 MCHC 34.5 g/dL (33.0-37.0) 06/12/17 14:58 RDW 14.6 % (11.5-14.5) H 06/12/17 14:58 Plt Count 233 K/uL (130-400) 06/12/17 14:58 MPV 8.6 fL (7.2-11.7) 06/12/17 14:58 Neut % (Auto) 86.7 % (50.0-75.0) H 06/12/17 14:58 Lymph % (Auto) 10.3 % (20.0-40.0) L 06/12/17 14:58 [place] % (Auto) 2.3 % (0.0-10.0) 06/12/17 14:58 Eos % (Auto) 0.1 % (0.0-4.0) 06/12/17 14:58 Baso % (Auto) 0.6 % (0.0-2.0) 06/12/17 14:58 Neut # (Auto) 6.1 K/uL (1.8-7.0) 06/12/17 14:58 Lymph # (Auto) 0.7 K/uL (1.0-4.3) L 06/12/17 14:58 [place] # (Auto) 0.2 K/uL (0.0-0.8) 06/12/17 14:58 Eos # (Auto) 0.0 K/uL (0.0-0.7) 06/12/17 14:58 Baso # (Auto) 0.0 K/uL (0.0-0.2) 06/12/17 14:58 Sodium 141 mmol/L (132-148) 06/13/17 08:40 Potassium 4.1 mmol/L (3.6-5.2) 06/13/17 08:40 Chloride 109 mmol/L (98-107) H 06/13/17 08:40 Carbon Dioxide 20 mmol/L (22-30) L 06/13/17 08:40 Anion Gap 17 (10-20) 06/13/17 08:40 BUN 16 mg/dL (9-20) 06/13/17 08:40 Creatinine 1.1 mg/dL (0.8-1.5) 06/13/17 08:40 Est GFR ( Amer) > 60 06/13/17 08:40 Est GFR (Non-Af Amer) > 60 06/13/17 08:40 Random Glucose 101 mg/dL (75-110) 06/13/17 08:40 Calcium 9.3 mg/dl (8.6-10.4) 06/13/17 08:40 Phosphorus 3.5 mg/dL (2.5-4.5) 06/12/17 14:58 Magnesium 1.9 mg/dL (1.6-2.3) 06/12/17 14:58 Total Bilirubin 0.6 mg/dL (0.2-1.3) 06/12/17 14:58 AST 38 U/L (17-59) 06/12/17 14:58 ALT 34 U/L (21-72) 06/12/17 14:58 Alkaline Phosphatase 94 U/L (38-126) 06/12/17 14:58 Troponin I 0.0150 ng/mL (0.00-0.120) 06/13/17 08:40 Total Protein 8.6 g/dL (6.3-8.3) H 06/12/17 14:58 Albumin 4.7 g/dL (3.5-5.0) 06/12/17 14:58 Globulin 3.9 gm/dL (2.2-3.9) 06/12/17 14:58 Albumin/Globulin Ratio 1.2 (1.0-2.1) 06/12/17 14:58 Free T4 0.90 ng/dL (0.78-2.19) 06/12/17 14:58 TSH 3rd Generation 0.24 mIU/L (0.46-4.68) L 06/12/17 14:58 Urine Color Yellow (YELLOW) 06/11/17 11:39 Urine Clarity Clear (Clear) 06/11/17 11:39 Urine pH 6.0 (5.0-8.0) 06/11/17 11:39 Ur Specific [place] 1.018 (1.003-1.030) 06/11/17 11:39 Urine Protein Negative mg/dL (NEGATIVE) 06/11/17 11:39 Urine Glucose (UA) Normal mg/dL (Normal) 06/11/17 11:39 Urine Ketones Negative mg/dL (NEGATIVE) 06/11/17 11:39 Urine Blood Negative (NEGATIVE) 06/11/17 11:39 Urine Nitrate Negative (NEGATIVE) 06/11/17 11:39 Urine Bilirubin Negative (NEGATIVE) 06/11/17 11:39 Urine Urobilinogen Normal mg/dL (0.2-1.0) 06/11/17 11:39 Ur Leukocyte Esterase Neg [place]/uL (Negative) 06/11/17 11:39 Urine WBC (Auto) < 1 /hpf (0-5) 06/11/17 11:39 Urine RBC (Auto) < 1 /hpf (0-3) 06/11/17 11:39 Ur Squamous Epith Cells < 1 /hpf (0-5) 06/11/17 11:39 Urine Opiates Screen Positive (NEGATIVE) H 06/11/17 11:39 Urine Methadone Screen Negative (NEGATIVE) 06/11/17 11:39 Ur Barbiturates Screen Negative (NEGATIVE) 06/11/17 11:39 Ur Phencyclidine Scrn Negative (NEGATIVE) 06/11/17 11:39 Ur Amphetamines Screen Negative (NEGATIVE) 06/11/17 11:39 U Benzodiazepines Scrn Negative (NEGATIVE) 06/11/17 11:39 U Oth Cocaine Metabols Negative (NEGATIVE) 06/11/17 11:39 U Cannabinoids Screen Positive (NEGATIVE) H 06/11/17 11:39 Alcohol, Quantitative < 10 mg/dl (0-10) 06/11/17 11:39 - Hospital Course Hospital Course: A/P 51 yo male with hx of CAD s/p PCI 3 months ago, HIV; HTN; heroin abuse; who was admitted for heroin detox on 5s transferred to [facility] for bradycardia HR still in high 40's on resting improved with activity above 50,s Dr. Fritz (EP) consulted fro bradycardia and recommended to start low dose coreg , no intervention at this time and f/u out pt D/W Dr. Sanches, cleared fro psychiatry point of view for discharge after todays dose of suboxone and f/u [facility] Pt is stable for discharge home today adn f/u with me and Dr. Little office Discharge plan discussed with pateint including f/u visit, who understand and agrees with plan SW to give information to f/u out pt IOP Discharge Exam - Head Exam Head Exam: NORMAL INSPECTION Discharge Plan - Discharge Medications Prescriptions: Carvedilol [Coreg] 3.125 mg PO DAILY #30 tab Albuterol HFA [Ventolin HFA 90 mcg/actuation (8 g)] 1 puff IH TID #2 inhaler - Follow Up Plan Condition: STABLE Disposition: HOME/ ROUTINE Instructions: Bradycardia, Heart Healthy Diet, DASH Diet, High Blood Pressure ( DC), Albuterol, Carvedilol Additional Instructions: Please follow up with Dr. Rodriguez office in 1 week Please follow up with Nelsy Moore in 1 week - (follow up visit for bradycardia ) Stop taking metoprolol PLEASE FOLLOW UP WITH IOP ([facility]) AT [facility] IN [place] Referrals: Ginna Little MD [Staff Provider] - Kiet Rodriguez MD [Staff Provider] -
--- NOTE | 2017-06-15 17:18 | CARD ---
APPROVED REPORT EKG Measurement Heart [id number] <Conclusion> Sinus bradycardia Otherwise normal ECG
--- NOTE | 2017-06-15 19:30 | CARD ---
APPROVED REPORT EKG Measurement Heart [id number] <Conclusion> Sinus bradycardia Voltage criteria for left ventricular hypertrophy Abnormal ECG
--- NOTE | 2017-06-15 23:29 | CARD ---
APPROVED REPORT EXAM: Two-dimensional and M-mode echocardiogram with Doppler and color Doppler. Other Information Quality : GoodRhythm : INDICATION Cardiac Disease: CAD HIV RISK FACTORS Hypertension 2D DIMENSIONS IVSd0.9 (0.7-1.1cm)LVDd5.0 (3.9-5.9cm) PWd1.0 (0.7-1.1cm)LVDs3.3 (2.5-4.0cm) FS (%) 34.0 %LVEF (%)62.7 (>50%) M-Mode DIMENSIONS Left Atrium (MM)4.08 (2.5-4.0cm)Aortic Root3.59 (2.2-3.7cm) Aortic Cusp Exc.2.29 (1.5-2.0cm) Mitral Valve MV E Xlglknno92.1cm/sMV A Gfzujajv83.2cm/sE/A ratio0.9 TDI E/Lateral E'0.0E/Medial E'0.0 Tricuspid Valve TR Peak Wsvwfvvf489al/sTR Peak Gr.18mmHg LEFT VENTRICLE The left ventricle is normal size. Left ventricle systolic function is normal. The Ejection Fraction is 60-65%. There is normal LV segmental wall motion. The left ventricular diastolic function is abnormal. Transmitral Doppler flow pattern is Grade I-abnormal relaxation pattern. No left ventricle thrombus noted on this study. RIGHT VENTRICLE The right ventricle is normal size. The right ventricular systolic function is normal. ATRIA The left atrium is mildly dilated. The right atrium size is normal. AORTIC VALVE The aortic valve is mildly sclerotic. The aortic valve is trileaflet. No aortic regurgitation is present. There is no aortic valvular stenosis. There is no aortic valvular vegetation. MITRAL VALVE Mitral annular calcification is mild to moderate. There is no evidence of mitral valve prolapse. There is no mitral valve stenosis. There is no mitral valve regurgitation noted. TRICUSPID VALVE The tricuspid valve is normal in structure. There is trace to mild tricuspid regurgitation. Right ventricular systolic pressure is estimated at less than 30 mmHg. There is no pulmonary hypertension. There is no tricuspid valve prolapse or vegetation. There is no tricuspid valve stenosis. PULMONIC VALVE The pulmonary valve is normal in structure. There is trace pulmonic valvular regurgitation. There is no pulmonic valvular stenosis. GREAT VESSELS The aortic root is normal in size. The IVC is normal in size and collapses >50% with inspiration. PERICARDIAL EFFUSION There is no pericardial effusion. There is no pleural effusion. <Conclusion> The left ventricle is normal size. Left ventricle systolic function is normal. The Ejection Fraction is 60-65%. The left ventricular diastolic function is abnormal. The right ventricle is normal size. The right ventricular systolic function is normal. The right atrium size is normal. No aortic regurgitation is present. There is trace to mild tricuspid regurgitation. There is trace pulmonic valvular regurgitation.
[2017-06-16] MEDS ORDERED: Pneumococcal 23-Valent Vaccine IM ONE (10:00)
== END 2017-06-14 17:10 | disposition home or self-care (01) | DRG 897 ==
LOC: C.ER 10:51 → C.7D 13:21 → C.6T 06-12 16:19
PROVIDERS: ADMIT Psychiatry & Neurology Psychiatry; ATTEND Internal Medicine
PROC: HZ2ZZZZ Detoxification Services for Substance Abuse Treatment (ICD-10-PCS; principal; 2017-06-11)
DX: F11.23 Opioid dependence with withdrawal (principal); I42.9 Cardiomyopathy, unspecified; F17.210 Nicotine dependence, cigarettes, uncomplicated; I10 Essential (primary) hypertension; I25.10 Atherosclerotic heart disease of native coronary artery without angina pectoris; I44.0 Atrioventricular block, first degree; J45.909 Unspecified asthma, uncomplicated; Z95.5 Presence of coronary angioplasty implant and graft; E11.9 Type 2 diabetes mellitus without complications; F12.10 Cannabis abuse, uncomplicated; R00.1 Bradycardia, unspecified

== ENCOUNTER 2017-10-06 16:18 | Inpatient (IN) | payer MEDICARE, MEDICAID ==
--- NOTE | 2017-10-06 17:22 | C.PDOC ---
History Of Present Illness 51yo male, pre-screened, comes to ER requesting detox from opiates. He reports last use was last night. At present, he denies any suicidal or homicidal ideation, denies any active physical complaints. Ambulate to Ed for evaluation , appears appropriate, not in any apparent distress. Time Seen by Provider: 10/06/17 16:38 Chief Complaint (Nursing): Substance Abuse History Per: Patient History/Exam Limitations: no limitations Associated Symptoms: denies: Suicidal Thoughts, Suicidal Plan Past Medical History Reviewed: Historical Data, Nursing Documentation, Vital Signs Vital Signs: Last Vital Signs Temp 98 F 10/06/17 20:04 Pulse 72 10/06/17 20:04 Resp 18 10/06/17 20:04 BP 120/70 10/06/17 20:04 Pulse Ox 97 10/06/17 20:04 - Medical History PMH: Asthma, HIV, HTN Denies: Diabetes, Hepatitis, Seizures, Sexually Transmitted Disease Surgical History: Coronary Stent - [facility] DETOXIFICATION SERVICES FOR SUBSTANCE ABUSE TREATMENT (06/11/17) Family History: States: Unknown Family Hx - Social History Hx Alcohol Use: No Hx Substance Use: Yes - Immunization History Hx Tetanus Toxoid Vaccination: No Hx Influenza Vaccination: No Hx Pneumococcal Vaccination: No Review Of Systems Except As Marked, All Systems Reviewed And Found Negative. Constitutional: Negative for: Fever, Chills Cardiovascular: Negative for: Chest Pain Respiratory: Negative for: Shortness of Breath Gastrointestinal: Negative for: Abdominal Pain Psych: Negative for: Suicidal ideation Physical Exam - Physical Exam Appears: Non-toxic Skin: Normal Color Head: Atraumatic, Normacephalic Eye(s): bilateral: Normal Inspection, EOMI Nose: Normal Oral Mucosa: Moist Neck: Normal ROM, Supple Chest: Symmetrical Cardiovascular: Rhythm Regular, No Murmur Respiratory: Normal Breath Sounds, No Rales, No Rhonchi, No Wheezing Gastrointestinal/Abdominal: Normal Exam, Soft, No Tenderness Back: Normal Inspection, No CVA Tenderness, No Vertebral Tenderness Extremity: Normal ROM, No Tenderness, No Pedal Edema Neurological/Psych: Oriented x3, Normal Speech, Normal Cognition, Normal Motor, Normal Sensation Gait: Steady ED Course And Treatment - Laboratory Results Result Diagrams: 10/06/17 17:10 10/06/17 17:10 Lab Interpretation: Normal O2 Sat by Pulse Oximetry: 98 (RA) Pulse Ox Interpretation: Normal Progress Note: Patient pre-screened for detox. Labs, UA and UDS ordered. Blood work review, normal. Pt is medically cleared for PES evaluation. After pt was seen by PES, case discussed with [id number] Dr. Sanches. and admission to detox arranged. Disposition - Disposition Disposition: HOSPITALIZED Disposition Time: 18:21 Condition: STABLE - Clinical Impression Clinical Impression: Opioid dependence - PA / BILLING CLERK / Resident Statement MD/DO has reviewed & agrees with the documentation as recorded. - Scribe Statement The provider has reviewed the documentation as recorded by the Leonidas Vidal Provider Attestation: All medical record entries made by the Leonidas were at my direction and personally dictated by me. I have reviewed the chart and agree that the record accurately reflects my personal performance of the history, physical exam, medical decision making, and the department course for this patient. I have also personally directed, reviewed, and agree with the discharge instructions and disposition.
[2017-10-06 17:23] LABS: HEMOGLOBIN 14.5 g/dL (12.0-18.0); MEAN CELL VOLUME 95.4 fL (80.0-94.0); MEAN CORPUSCULAR HEMOGLOBIN 32.6 pg (27.0-31.0); MEAN CORPUSCULAR HGB CONC 34.1 g/dL (33.0-37.0); MEAN PLATELET VOLUME 7.7 fL (7.2-11.7); RBC 4.45 Mil/uL (4.40-5.90); RED CELL DISTRIBUTION WIDTH 15.7 % (11.5-14.5); WHITE BLOOD COUNT 5.1 K/uL (4.8-10.8)
[2017-10-06 17:44] LABS: ALB/GLOB RATIO 1.7 (1.0-2.1); ALBUMIN 4.8 g/dL (3.5-5.0); ALT/SGPT 36 U/L (21-72); AST/SGOT 29 U/L (17-59); BLOOD UREA NITROGEN 11 mg/dL (9-20); CALCIUM 9.5 mg/dl (8.6-10.4); GFR AFRICAN-AMERICAN > 60; GFR NON-AFRICAN AMERICAN > 60
[2017-10-06 17:53] LABS: BARBITURATES, UR NEGATIVE (NEGATIVE); BENZODIAZEPINES, UR NEGATIVE (NEGATIVE); PHENCYCLIDINE, UR NEGATIVE (NEGATIVE)
[2017-10-06 18:08] LABS: SQUAMOUS EPITHIAL < 1 /hpf (0-5); URINE BILIRUBIN NEGATIVE (NEGATIVE); URINE BLOOD NEGATIVE (NEGATIVE); URINE CLARITY Hazy (Clear); URINE COLOR Yellow (YELLOW); URINE GLUCOSE (UA) NORMAL (Normal); URINE LEUKOCYTE ESTERASE NEG Leu/uL (Negative); URINE PROTEIN NEGATIVE (NEGATIVE); URINE UROBILINOGEN NORMAL mg/dL (0.2-1.0)
[2017-10-06 18:14] LABS: OPIATES, UR POSITIVE (NEGATIVE)
--- NOTE | 2017-10-06 19:23 | PCM.BM ---
<Himanshu Hale - Last Filed: 10/06/17 19:22> Treatment Plan Problems - Problems identified on initial assessmt potential for opiate withdrawal Date Initiated: 10/06/17 Time Initiated: 19:22 Status: Active Treatment assets and liabiliti Patient Assests: ADL independent, cognitively intact Patient Liabilities: substance abuse, medical problems - Milieu Protocol Maintain good personal hygiene: daily Encourage regular showers, daily Remind patient to perform daily oral care, daily Assist patient to perform ADL's Conduct patient checks and document Observation sheet: Q15 minutes Maintain personal safety: every shift Educate patient to report safety concerns to staff, every shift Monitor environment for contraband/sharps Medication safety: Monitor for expected outcome, potential side effects: every shift, Assess barriers to learning: every shift, Assess readiness for medication education: every shift <Alka Sanches - Last Filed: 10/08/17 23:12> - Diagnosis (1) Opioid dependence Status: Acute Interventions: 10/08/17 23:12 * Assess 7x/week regarding severity of withdrawal * Educate regarding risks, benefits, side effects and alternatives of medications * Use Motivational Interviewing for abstinence * Use CBT for relapse prevention * Medication management for withdrawal symptoms * Encourage medication assisted treatment *
[2017-10-07] MEDS ORDERED: Albuterol HFA 90 mcg/actuation (8 g) INH PRN (06:21)
[2017-10-07] MEDS: Multiple Vitamins Tab PO SCH (10:43)
[2017-10-07] MEDS: Metoprolol Succinate 25 mg XL Tab PO SCH (10:43)
[2017-10-07] MEDS: [UNRECOGNIZED DRUG - OTHER] PO SCH (10:43)
[2017-10-07] MEDS: DESCOVY 200/25 PO SCH (10:43)
--- NOTE | 2017-10-07 11:48 | PCM.PSYCH ---
Initial Psychiatric Evaluation - Initial Psychiatric Evaluation Type of Admission: Voluntary Legal Status: Capacity Chief Complaint (in patient's own words): I came here to get help.' History of Present Illness and Precipitating Events: Pt is a 51yo AAM who to the ED to get help in heroin detox. Pt reports using 10 bags of heroin every other day or whenever I have the money , intranasal, last use 10/05/17. Pt reports drinking off and on but denies is as a problem. He reports of drinking three 18oz beers three times a week." Pt reports current withdrawal symptoms as nausea, vomiting, cramps, joint and back pains, anxiety and headaches. Pt reports 2 previous detox admissions: 2013 at [facility] [place] and 2012 at [facility]. Pt denies any past history of any inpatient psychiatric hospitalizations and denies any history of follow up with any psychiatrist. Patient reports irritability but denies any feelings of hopelessness, helplessness, and worthlessness. He denies any denies suicidal ideation or homicidal ideation. Pt denies any auditory or visual hallucinations or any paranoia. Pt reports a 2015 arrest due to unpaid traffic tickets. Pt reports a one day incarceration in 2015 due to unpaid traffic tickets. PMH: VT s/p stent, HTN Current Medications: Active Medications Generic Name Dose Route Start Last Admin Trade Name Freq PRN Reason Stop Dose Admin Albuterol 1 puff 10/07/17 06:21 10/07/17 10:46 Ventolin Hfa 90 Mcg/Actuation (8 G) INH 1 puff RQ6 PRN Administration Shortness of Breath Aspirin 81 mg 10/07/17 10:00 10/07/17 10:43 Aspirin Chewable PO 81 mg DAILY JOSUÉ Administration Chlordiazepoxide 25 mg 10/06/17 20:02 10/06/17 21:18 Librium PO 25 mg Q4H PRN Administration Alcohol Withdrawal Clonidine HCl 0.1 mg 10/06/17 20:02 10/06/17 21:18 Catapres PO 0.1 mg Q4H PRN Administration Symptoms of alcohol withdrawl Dicyclomine HCl 10 mg 10/06/17 20:01 10/06/17 21:18 Bentyl PO 10 mg Q6 PRN Administration Muscle spasm Folic Acid 1 mg 10/07/17 10:00 10/07/17 10:43 Folic Acid PO 1 mg DAILY JOSUÉ Administration Home Med 2 tab 10/07/17 10:00 10/07/17 10:43 Patient's Own Medication PO 10/12/17 23:59 2 tab DAILY JOSUÉ Administration Protocol Home Med 1 tab 10/07/17 10:00 10/07/17 10:43 Patient's Own Medication PO 10/12/17 23:59 1 tab DAILY JOSUÉ Administration Hydroxyzine HCl 25 mg 10/06/17 20:01 10/06/17 21:18 Atarax PO 25 mg Q6 PRN Administration Anxiety Ibuprofen 600 mg 10/06/17 20:05 10/07/17 01:50 Motrin Tab PO 600 mg TID PRN Administration Pain, moderate (4-7) Lisinopril 10 mg 10/07/17 10:00 10/07/17 10:43 Zestril PO 10 mg DAILY JOSUÉ Administration Metoprolol Succinate 25 mg 10/07/17 10:00 10/07/17 10:43 Toprol Xl PO 25 mg DAILY JOSUÉ Administration Multivitamins 1 tab 10/07/17 10:00 10/07/17 10:43 Hexavitamin PO 1 tab DAILY JOSUÉ Administration Ondansetron HCl 4 mg 10/06/17 20:01 10/07/17 10:54 Zofran Tab PO 4 mg Q8H PRN Administration Nausea/Vomiting Rosuvastatin Calcium 20 mg 10/06/17 22:00 10/06/17 22:51 Crestor PO 20 mg HS JOSUÉ Administration Thiamine HCl 100 mg 10/07/17 10:00 10/07/17 10:43 Vitamin B1 Tab PO 100 mg DAILY JOSUÉ Administration Ticagrelor 90 mg 10/06/17 22:45 10/07/17 10:43 Brilinta PO 90 mg BID JOSUÉ Administration Trazodone HCl 100 mg 10/06/17 23:00 10/06/17 23:00 Desyrel PO 100 mg HS JOSUÉ Administration Past Psychiatric History - Past Psychiatric History Previous Treatment History: Inpatient Pertinent Medical Hx (Current Medical&Sleep Prob, Allergies): Allergies Allergy/AdvReac Type Severity Reaction Status Date / Time tomato Allergy Verified 06/11/17 11:20 Aspirin [Aspirin Chewable] 81 mg PO DAILY 06/11/17 Emtricitabine/Tenofov Alafenam [Descovy 200-25 mg Tablet] 1 each PO DAILY Metoprolol Succinate 25 mg PO DAILY 06/11/17 Raltegravir Potassium [Isentress Hd] 600 mg PO DAILY 06/11/17 Ticagrelor [Brilinta] 90 mg PO DAILY 06/11/17 Albuterol HFA [Ventolin HFA 90 mcg/actuation (8 g)] 1 puff IH PRN PRN 10/06/17 Atorvastatin [Lipitor] 40 mg PO HS 10/06/17 Lisinopril [Zestril] 10 mg PO DAILY 10/06/17 Pantoprazole [Protonix] 40 mg PO DAILY 10/06/17 QUEtiapine [SEROquel] 25 mg PO DAILY 10/06/17 Review of Systems - Review of Systems All systems: reviewed and no additional remarkable complaints except - Psychiatric Psychiatric: Anxiety, Irritability. absent: Auditory Hallucinations, Suicidal Ideation, Visual Hallucinations Mental Status Examination - Personal Presentation Personal Presentation: Looks stated age - Affect Affect: Constricted - Motor Activity Motor Activity: Calm - Reliability in Providing Information Reliability in Providing Information: Fair - Speech Speech: Organized - Mood Mood: Anxious - Formal Thought Process Formal Thought Process: No Impairment - Obsessions/Compulsions Obsessions: No Compulsions: No - Cognitive Functions Orientation: Person, Place, Situation, Time Sensorium: Alert Attention/Concentration: Attentive Abstract Thinking: [place] Estimate of Intelligence: Below average Judgement: Imparied, as evidence by: Poor judgement, Imparied, as evidence by: Lack of insight into illness - Risk Risk: Withdrawal, Diminished functioning - Limitations Limitations: Living alone DSM 5 DX - DSM 5 DSM 5 Diagnosis: Opiate use disorder severe Opiate withdrawal uncomplicated Alcohol use disorder moderate - Recommended/Plan of Treatment Treatment Recommendations and Plan of Treatment: Opiate use disorder severe -CBT -Psychoeducation -Supportive therapy, individual therapy -Use [place] for abstinence Opiate withdrawal uncomplicated -CBT -Psychoeducation -Supportive therapy, individual therapy -Start subutex taper -prn meds Alcohol use disorder moderate -Psychoeducation -Supportive therapy, individual therapy -Use VT for abstinence
[2017-10-07] MEDS ORDERED: Buprenorphine Hydrochloride 2 mg SL ONE (12:18)
[2017-10-07] MEDS: Buprenorphine Hydrochloride 2 mg SL SCH ×3 (13:17→14:42)
[2017-10-08] MEDS: Metoprolol Succinate 25 mg XL Tab PO SCH (10:08)
[2017-10-08] MEDS: DESCOVY 200/25 PO SCH (10:09)
[2017-10-08] MEDS: [UNRECOGNIZED DRUG - OTHER] PO SCH (10:10)
[2017-10-08] MEDS: Multiple Vitamins Tab PO SCH (10:10)
[2017-10-08] MEDS: Buprenorphine Hydrochloride 2 mg SL SCH (10:12)
[2017-10-08 13:16] VITALS: RESP 18
--- NOTE | 2017-10-08 14:13 | PCM.PYCHPN ---
Psychiatric Progress Note - Psychiatric Progress Note Patient seen today, length of contact: 17 min Patient Chief Complaint: "Not good" Problems Identified/Issues Discussed: The pt is seen, chart reviewed, case discussed with staff. The pt is compliant with medications and reports no side-effects. Symptoms are improving but needs more time to stabilize. After care discussed, support and psychoeducation given. Pt also admitted to bringing 3 sub films - confirmed online and sent Medication Change: Yes (detox changes daily) Medical Record Reviewed: Yes Mental Status Examination - Cognitive Function Orientation: Person, Place, Situation, Time Memory: Impaired Attention: Poor Concentration: Poor Association: WNL Fund of Knowledge: Poor - Mood Mood: Anxious - Affect Affect: Constricted - Speech Speech: Appropriate - Formal Thought Process Formal Thought Process: No Impairment - Suicidal Ideation Suicidal Ideation: No - Homicidal Ideation Homicidal Ideation: No Goal/Treatment Plan - Goal/Treatment Plan Need for Continued Stay: Discharge may exacerbated symptoms, Severe functional impairment Progress Toward Problem(s) and Goals/Treatment Plan: Continue medications Support and psychoeducation daily Attend groups and activities daily After care planning by [facility] - Smoking Cessation Smoking Cessation Initiated: Yes
[2017-10-09] MEDS: [UNRECOGNIZED DRUG - OTHER] PO SCH (10:17)
[2017-10-09] MEDS: DESCOVY 200/25 PO SCH (10:17)
[2017-10-09] MEDS: Multiple Vitamins Tab PO SCH (10:18)
[2017-10-09] MEDS: Metoprolol Succinate 25 mg XL Tab PO SCH (10:19)
[2017-10-09] MEDS: Buprenorphine Hydrochloride 2 mg SL SCH (10:20)
--- NOTE | 2017-10-09 11:44 | PCM.PYCHPN ---
Psychiatric Progress Note - Psychiatric Progress Note Patient seen today, length of contact: 17 min Patient Chief Complaint: I came here to get help.' Medication Change: Yes (detox changes daily) Medical Record Reviewed: Yes Mental Status Examination - Cognitive Function Orientation: Person, Place, Situation, Time Memory: Impaired Attention: Poor Concentration: Poor Association: WNL Fund of Knowledge: Poor - Mood Mood: Anxious - Affect Affect: Constricted - Speech Speech: Appropriate - Formal Thought Process Formal Thought Process: No Impairment - Suicidal Ideation Suicidal Ideation: No - Homicidal Ideation Homicidal Ideation: No Goal/Treatment Plan - Goal/Treatment Plan Need for Continued Stay: Discharge may exacerbated symptoms, Severe functional impairment Progress Toward Problem(s) and Goals/Treatment Plan: Opiate use disorder severe -CBT -Psychoeducation -Supportive therapy, individual therapy -Use ME for abstinence Opiate withdrawal uncomplicated -CBT -Psychoeducation -Supportive therapy, individual therapy -Start subutex taper -prn meds Alcohol use disorder moderate -Psychoeducation -Supportive therapy, individual therapy -Use ME for abstinence
[2017-10-10 06:38] VITALS: PULSE 50
[2017-10-10] MEDS: [UNRECOGNIZED DRUG - OTHER] PO SCH (09:53)
[2017-10-10] MEDS: DESCOVY 200/25 PO SCH (09:53)
[2017-10-10] MEDS: Multiple Vitamins Tab PO SCH (09:54)
[2017-10-10] MEDS: Buprenorphine Hydrochloride 2 mg SL SCH (09:54)
--- NOTE | 2017-10-10 10:28 | PCM.PYCHDC ---
Mental Status Examination - Mental Status Examination Orientation: Person, Place, Situation, Time Memory: Intact Mood: Neutral Affect: Constricted Speech: Soft Attention: WNL Concentration: WNL Association: WNL Fund of Knowledge: WNL Formal Thought Process: No Impairment Description of patient's judgement and insight: good, fair Psychotic Thoughts and Behaviors: denies any AVH Suicidal Ideation: No Current Homicidal Ideation?: No Discharge Summary - Discharge Note Reason for Hospitalization: Pt is a 51yo AAM who to the ED to get help in heroin detox. Pt reports using 10 bags of heroin every other day or whenever I have the money , intranasal, last use 10/05/17. Pt reports drinking off and on but denies is as a problem. He reports of drinking three 18oz beers three times a week." Pt reports current withdrawal symptoms as nausea, vomiting, cramps, joint and back pains, anxiety and headaches. Pt reports 2 previous detox admissions: 2013 at [facility] [place] and 2013 at [facility]. Pt denies any past history of any inpatient psychiatric hospitalizations and denies any history of follow up with any psychiatrist. Patient reports irritability but denies any feelings of hopelessness, helplessness, and worthlessness. He denies any denies suicidal ideation or homicidal ideation. Pt denies any auditory or visual hallucinations or any paranoia. Pt reports a 2016 arrest due to unpaid traffic tickets. Pt reports a one day incarceration in 2016 due to unpaid traffic tickets. Consultations:: List each consultation separately and include: 1. Reason for request. 2. Findings. 3. Follow-up Summary of Hospital Course include:: 1. Description of specific treatment plan utilized for patients during their course of treatmen. 2. Summarize the time- course for resolution of acute symptoms and/or regressed behaviors. 3. Describe issues identified and worked on during hospitalization. 4. Describe medication utilized. 5. Describe medical problems identified and treated. 6. Reassessment of suicide risk Summary of Hospital Course: Pt is a 51yo AAM who to the ED to get help in heroin detox. Pt reports using 10 bags of heroin every other day or whenever I have the money , intranasal, last use 10/05/17. Pt reports drinking off and on but denies is as a problem. He reports of drinking three 18oz beers three times a week." Pt reports current withdrawal symptoms as nausea, vomiting, cramps, joint and back pains, anxiety and headaches. Pt reports 2 previous detox admissions: 2013 at [facility] [place] and 2013 at [facility]. Pt denies any past history of any inpatient psychiatric hospitalizations and denies any history of follow up with any psychiatrist. Patient reports irritability but denies any feelings of hopelessness, helplessness, and worthlessness. He denies any denies suicidal ideation or homicidal ideation. Pt denies any auditory or visual hallucinations or any paranoia. Pt reports a 2016 arrest due to unpaid traffic tickets. Pt reports a one day incarceration in 2016 due to unpaid traffic tickets. PMH: [place] s/p stent, HTN - Final Diagnosis (DSM 5) Condition upon Discharge: STABLE DSM 5: Opiate use disorder severe Opiate withdrawal uncomplicated Alcohol use disorder moderate Disposition: HOME/ ROUTINE Follow-up Treatment Plan: Opiate use disorder severe -CBT -Psychoeducation -Supportive therapy, individual therapy -Use DE for abstinence Opiate withdrawal uncomplicated -CBT -Psychoeducation -Supportive therapy, individual therapy -Start subutex taper -prn meds Alcohol use disorder moderate -Psychoeducation -Supportive therapy, individual therapy -Use DE for abstinence Prescriptions/Medication Reconciliation: traZODone [Desyrel] 100 mg PO HS #30 tab
[2017-10-10] MEDS: Metoprolol Succinate 25 mg XL Tab PO SCH (10:33)
[2017-10-10 11:16] VITALS: BP 136/74; TEMP 98.2; O2SAT 99
== END 2017-10-10 11:20 | disposition home or self-care (01) | DRG 895 ==
LOC: C.ER 16:18 → C.7D 19:00
PROVIDERS: ADMIT Psychiatry & Neurology Psychiatry; ATTEND Psychiatry & Neurology Psychiatry
PROC: HZ2ZZZZ Detoxification Services for Substance Abuse Treatment (ICD-10-PCS; principal; 2017-10-06)
PROC: HZ59ZZZ Individual Psychotherapy for Substance Abuse Treatment, Supportive (ICD-10-PCS; 2017-10-06)
PROC: HZ46ZZZ Group Counseling for Substance Abuse Treatment, Psychoeducation (ICD-10-PCS; 2017-10-06)
PROC: HZ90ZZZ Pharmacotherapy for Substance Abuse Treatment, Nicotine Replacement (ICD-10-PCS; 2017-10-06)
DX: F11.23 Opioid dependence with withdrawal (principal); F10.10 Alcohol abuse, uncomplicated; F17.210 Nicotine dependence, cigarettes, uncomplicated; F41.9 Anxiety disorder, unspecified; I10 Essential (primary) hypertension; J45.909 Unspecified asthma, uncomplicated; Z95.5 Presence of coronary angioplasty implant and graft